=== PATIENT | male | born 1995 | race Caucasian/White ===

== ENCOUNTER 2024-04-05 23:44 | Emergency (ER) | payer OTHER ==
[2024-04-05 23:58] VITALS: BP 121/78; O2SAT 100
--- NOTE | 2024-04-06 00:05 | ED Physician Documentation ---
History of Present Illness - Stated complaint Stated Complaint: POSS RABIES EXPOSURE - Chief complaint Chief Complaint: General - History obtained from History obtained from: Patient - Additonal information Additional information: 28yM presents after he believes a bat wing hit his face tonight. He did not see the actual bat but felt something leathery along the left side of his face and ear for a moment. denies scratches or bites. washed the area thoroughly after the event. PD PAST MEDICAL HISTORY - Past Medical History Past Medical History: No Cardiovascular: None Respiratory: None Neuro: None Endocrine/Autoimmune: None GI: None : None HEENT: None Psych: None Musculoskeletal: None Derm: None - Past Surgical History Past Surgical History: No - Allergies Allergies/Adverse Reactions: Allergies Allergy/AdvReac Type Severity Reaction Status Date / Time No Known Drug Allergies Allergy Verified 04/05/24 23:50 - Social History Does the pt smoke?: No Smoking Status: Never smoker Does the pt drink ETOH?: No Does the pt have substance abuse?: No - Immunizations Immunizations are current?: Yes - POLST Patient has POLST: No PD ED PE NORMAL - Vitals Vital signs reviewed: Yes - General General: Alert and oriented X 3, No acute distress, Well developed/nourished - HEENT HEENT: Atraumatic, PERRL, EOMI, Ears normal, Moist mucous membranes, Pharynx benign, Other (no abrasions, lacerations or bites) - Neck Neck: Supple, no meningeal sign - Derm Derm: Normal color, Warm and dry, Other (no abrasions, lacerations or bite melgar) Results - Vitals Vitals: Vital Signs - 24 hr 04/05/24 23:50 Temperature 36.8 C Heart Rate 51 L Respiratory 16 Rate Blood Pressure 121/78 O2 Saturation 100 Oxygen O2 Source Room air PD Medical Decision Making - ED course ED course: 28yM p/w possible encounter with a bat, with concern he has been exposed to rabies. denies bite or scratch. exam is benign. advised no PEP and routine follow up with pcp. Departure - Departure Disposition: 01 Home, Self Care Clinical Impression: Encounter for medical screening examination Condition: Stable Comments: You were seen in the emergency department after a bat possibly flew into your face. Upon medical exam you do not have any bites or scratches on your person. According to the rabies postexposure prophylaxis protocol, a significant exposure to rabies involves a bite or scratch from a high risk animal. You are therefore safe to continue daily activities and follow up routinely with your primary care provider.
== END 2024-04-06 00:13 | disposition home or self-care (01) ==
LOC: ED 23:44
DX: Z71.1 Person with feared health complaint in whom no diagnosis is made (principal)
CPT/HCPCS: 99281; 99282